=== PATIENT | male | born 1955 | race Caucasian/White ===

== ENCOUNTER 2023-06-12 09:43 | Outpatient (CLI) | payer OTHER ==
--- NOTE | 2023-06-12 11:54 | MRI Report ---
PROCEDURE: CERVICAL SPINE WO INDICATIONS: CERVICAL RADICULOPATHY TECHNIQUE: Noncontrast sagittal T1 spin echo and T2 fast spin echo, sagittal STIR, foraminal oblique sagittal T2 fast spin echo, and axial gradient echo or T2 fast spin echo through the cervical spine. COMPARISON: None. FINDINGS: Image quality: Excellent. Alignment and Curvature: Trace retrolisthesis of C3 on C4 and of C4 on C5. Trace anterolisthesis of C 6 on C7 and C7 on T1. Bone Marrow: Marrow demonstrates normal overall signal. Spinal Cord: Visualized spinal cord has normal size and signal. No cerebellar tonsillar herniation. Paraspinous Soft Tissues: No paravertebral masses. Prevertebral soft tissues are normal in thicknes s. C2-C3: No canal stenosis. AP diameter of the central canal is 10.5 mm. Bilateral facet hypertrophy. Moderate left foraminal narrowing with flattening deformity on the exiting left C3 nerve root. C3-C4: Chronic disc height loss. Posterior disc plus osteophyte. Bilateral uncovertebral joint hype rtrophy, prominent on the left. There is flattening on the cord. AP diameter of the central canal is 9.3 mm. Osteophyte impinges on the ventral horn of the exiting left C4 nerve root in the left lateral recess. There is mild left facet hypertrophy. There is severe bilateral foraminal narrowing, right g reater than left, with bilateral foraminal C4 nerve root impingement. C4-C5: Chronic disc height loss. Diffuse posterior disc plus osteophyte, eccentric to the left. Larg e left uncovertebral joint osteophyte as well as right uncovertebral joint osteophyte. AP diameter of the central canal is 8.9 mm. There is impingement on the ventral horn of the exiting left C5 nerve r oot in the left lateral recess. There is moderate right foraminal narrowing. There is moderate to sev ere left foraminal narrowing with left foraminal C5 nerve root impingement. C5-C6: Severe chronic disc height loss. Large left posterior lateral disc osteophyte complex. AP selvin meter of the central canal is 8.6 mm. There is severe narrowing of the left side of the canal and lef t lateral recess. There is moderate to severe right foraminal narrowing and severe left foraminal kyle rowing with bilateral foraminal C6 nerve root impingement. C6-C7: Chronic disc height loss. Diffuse posterior disc plus osteophyte flattening the ventral cord. AP diameter of the central canal is 8.9 mm. Bilateral uncovertebral joint hypertrophy. Moderate to s evere bilateral foraminal narrowing with a degree of bilateral foraminal C7 nerve root impingement. C7-T1: Disc bulge. No central canal stenosis. Bilateral facet hypertrophy. Moderate right foraminal narrowing and moderate to severe left foraminal narrowing. There is a degree of left foraminal C8 ner ve root impingement. IMPRESSION: 1. Diffuse underlying cervical spondylitic change with multilevel disc height loss and posterior disc osteophyte complex and uncovertebral joint hypertrophy. 2. Canal stenosis is mild to moderate at C3-C4, moderate at C4-C5 and C5-C6, and mild to moderate at C6-C7. 3. Significant multilevel foraminal narrowing as described above. Findings include severe bilateral f oraminal narrowing at C3-C4, moderate to severe left foraminal narrowing at C4-C5, moderate to severe right foraminal narrowing to severe left foraminal narrowing at C5-C6, and moderate to severe bilate ral foraminal narrowing at C6-C7, and moderate to severe left foraminal narrowing at C7-T1. Reviewed by: Cliff Gomes MD on 06/12/2023 11:52 AM PST Approved by: Cliff Gomes MD on 06/12/2023 11:52 AM PST Station ID: [id number]
== END 2023-06-12 09:44 | disposition home or self-care (01) ==
LOC: DI 09:43
PROVIDERS: ATTEND Family Medicine
DX: M47.22 Other spondylosis with radiculopathy, cervical region (principal); M50.01 Cervical disc disorder with myelopathy, high cervical region; M48.02 Spinal stenosis, cervical region

== ENCOUNTER 2023-12-28 08:55 | Outpatient (CLI) | payer MEDICARE | END 2023-12-28 08:56 | disposition home or self-care (01) | LOC: LAB 08:55 | PROVIDERS: ATTEND Urology | DX: N52.9 Male erectile dysfunction, unspecified (principal) | CPT/HCPCS: 36415; 84403 ==

== ENCOUNTER 2024-01-04 08:08 | Outpatient (CLI) | payer MEDICARE ==
[2024-01-04 08:26] LABS: BASOPHILS # (AUTO) 0.1 10^3/uL (0.0-0.1); BASOPHILS % (AUTO) 1.5 %; EOSINOPHILS # (AUTO) 0.2 10^3/uL (0.0-0.7); HCT - HEMATOCRIT 38.1 % (42.0-52.0); HGB - HEMOGLOBIN 12.6 g/dL (14.0-18.0); LYMPHOCYTES # (AUTO) 1.5 10^3/uL (1.5-3.5); LYMPHOCYTES % (AUTO) 29.3 %; MEAN CORPUSCULAR HEMOGLOBIN 33.1 pg (27.0-31.0); MEAN CORPUSCULAR HGB CONC 33.1 g/dL (32.0-36.0); MEAN PLATELET VOLUME 8.9 fL (7.4-11.4); MONOCYTES # (AUTO) 0.7 10^3/uL (0.0-1.0); MONOCYTES % (AUTO) 12.7 %; NEUTROPHILS # (AUTO) 2.7 10^3/uL (1.5-6.6); NEUTROPHILS % (AUTO) 51.7 %; PLT - PLATELET COUNT 223 10^3/uL (130-450); RED BLOOD COUNT 3.81 10^6/uL (4.70-6.10); RED CELL DISTRIBUTION WIDTH 12.4 % (12.0-15.0); WHITE BLOOD COUNT 5.3 x10^3/uL (4.8-10.8)
[2024-01-04 09:02] LABS: PROLACTIN 9.82 ng/mL
== END 2024-01-04 08:09 | disposition home or self-care (01) ==
LOC: LAB 08:08
PROVIDERS: ATTEND Urology
DX: E29.1 Testicular hypofunction (principal)
CPT/HCPCS: 36415; 82670; 83002; 84146; 84153; 84403; 85025